=== PATIENT | male | born 1960 | race Caucasian/White ===

== ENCOUNTER 2017-06-07 17:09 | Emergency (ER) | payer OTHER ==
[2017-06-07 17:13] VITALS: TEMP 97.5
--- NOTE | 2017-06-07 17:23 | CPEKG ---
Heart Rate: 60 RR Interval: 1000 P-R Interval: 200 QRSD Interval: 94 QT Interval: 396 QTC Interval: 396 P [place]: 14 QRS [place]: 24 T Wave [place]: 33 EKG Severity - NORMAL ECG - EKG Impression: SINUS RHYTHM Electronically Signed By: Rob Mantilla 07-Jun-2017 20:34:03
[2017-06-07] MEDS ORDERED: NS 1,000 ML IV ONE ×2 (17:56)
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
[2017-06-07 18:24] LABS: % IMMATURE GRANULYOCYTES 0.2 % (0.0-1.1); ABSOLUTE IMMATURE GRANULOCYTES 0.01 10^3/uL (0.00-0.10); ADD DIFF? NO; ADD MORPH? NO; ADD SCAN? NO; ATYPICAL LYMPHOCYTE FLAG 20 (0-99); FRAGMENT RBC FLAG 0 (0-99); HEMATOCRIT 42.6 % (40.0-51.0); LEFT SHIFT FLG 0 (0-99); LIPEMIA HEMOLYSIS FLAG 90 (0-99); MEAN CELL HEMOGLOBIN 32.5 pg (27.9-34.1); MEAN CELL HEMOGLOBIN CONCENTR. 35.2 g/dL (32.4-36.7); MEAN CELL VOLUME 92.4 fL (81.5-99.8); MEAN PLATELET VOLUME 9.4 fL (8.7-11.7); PLATELET CLUMPS FLAG 0 (0-99); PLATELET COUNT 234 10^3/uL (150-400); RED BLOOD CELL COUNT 4.61 10^6/uL (4.40-6.38); RED CELL DISTRIBUTION WIDTH 12.3 % (11.5-15.2)
[2017-06-07 18:27] LABS: COLOR YELLOW; LEUKOCYTE ESTERASE,URINE NEGATIVE (NEGATIVE); NITRITE,URINE NEGATIVE (NEGATIVE)
[2017-06-07 18:31] LABS: MUCUS TRACE /lpf (NONE-1+); RBC,URINE NONE SEEN /hpf (0-3)
[2017-06-07 18:32] LABS: INR 0.99 (0.83-1.16)
[2017-06-07 18:33] LABS: APTT 25.1 SEC (23.0-38.0)
[2017-06-07 18:40] LABS: ALANINE AMINOTRANSFERASE 43 IU/L (21-72); ALBUMIN 4.4 g/dL (3.5-5.0); ALKALINE PHOSPHATASE 57 IU/L (38-126); ANION GAP 12 mEq/L (8-16); ASPARTATE AMINOTRANSFERASE 21 IU/L (17-59); BILIRUBIN,TOTAL 0.6 mg/dL (0.1-1.4); BILIRUBIN-CONJUGATED 0.2 mg/dL (0.0-0.5); BILIRUBIN-UNCONJUGATED 0.4 mg/dL (0.0-1.1); CALCIUM 9.7 mg/dL (8.5-10.4); CARBON DIOXIDE 23 mEq/l (22-31); CHLORIDE 107 mEq/L (97-110); CREATININE 1.2 mg/dL (0.7-1.3); GLOMERULAR FILTRATION RATE > 60; GLUCOSE 119 mg/dL (70-100); POTASSIUM 3.9 mEq/L (3.5-5.2); SODIUM 142 mEq/L (134-144); TOTAL PROTEIN 7.2 g/dL (6.3-8.2)
[2017-06-07 18:51] LABS: TROPONIN I < 0.012 ng/mL (0-0.034)
[2017-06-07 19:39] VITALS: BP 143/88; PULSE 55; RESP 16; O2SAT 95
== END 2017-06-07 19:39 | disposition home or self-care (01) ==
DX: T75.00XA Unspecified effects of lightning, initial encounter (principal); I10 Essential (primary) hypertension; E86.9 Volume depletion, unspecified; Z87.891 Personal history of nicotine dependence